=== PATIENT | male | born 1930 | race Caucasian/White ===

== ENCOUNTER 2017-07-01 17:31 | Emergency (ER) | payer MEDICARE, MEDICAID ==
[~2017-07-01] VITALS: Ht 177.8 cm; Wt 67.6 kg
--- NOTE | 2017-07-01 18:01 | Emergency Room Report ---
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 N Clinical Suspician of Infection? N Mental Status: 1 - Regular (Normal Baseline) Sepsis Risk:Low Sepsis Risk Have you (or family members/close friends) recently traveled outside the [place]? N If Yes, where/when: Have you had exposure to infectious disease within the past month? N TB? Other? Specify: 87 years old white male who is has a chief complaint SHORTNESS of breath and wheezing since last night. He has coughed is productive of white material. He denies having fever or chills chest pain or abdominal pain. He is belching a lot BY His . Source patient, RN notes reviewed, family () Exam Limitations no limitations ALLERGIES Coded Allergies: No Known Allergies (01/07/17) History Medical History General CAD? No Angina: No OH: No Hypertension? No Hyperlipidemia? No CHF? No DVT? No PE? No COPD? Yes Asthma? Yes Anemia? No GERD? No Gastric ulcers? No GI Bleed? No Hernia? No Thyroid Problems? No Hypothyroidism? No CVA? No Seizures? No Diabetes? No Renal Insuffiency? No End Stage Renal Disease? No UTI? No Stones? No BPH? No GB Disease: No Nephritic Syndrome? No Asplenia? No Hepatitis? No Sickle Cell Disease? No Arthritis? No Migraines? No Cataracts? Yes Glaucoma? No MRSA? No HIV? No TB? No Anxiety? No Depression? No Cancer? No More? No Immunization Hx DT/Tetanus Unknown Surgical Hx Previous Surgery?Y CATARACTS APPENDECTOMY Social History Smoking Hx Smoker: Former Smoker Tobacco: Yes Type Cigarettes Alcohol Alcohol: No Review of Systems All Other Systems Reviewed and Negative Constitutional no symptoms reported Eyes no symptoms reported ENT no symptoms reported. Respiratory see HPI Cardiovascular no symptoms reported Gastrointestinal no symptoms reported Genitourinary no symptoms reported. Musculoskeletal no symptoms reported Skin no symptoms reported Psychiatric/Neurological no symptoms reported Physical Exam Vital Signs Vital Signs Date Time Temp Pulse Resp B/P Pulse O2 O2 Flow FiO2 Ox Delivery Rate 07/01 1903 98.3 88 22 118/77 93 07/01 1748 98.4 89 22 150/90 94 - WBC >12,000 or <4,000 or 10% bands? 2 or more SIRS Criteria Met? B/P:150/90 MAP:110 Creatinine >2.0? UA output<0.5ml/kg/hr for 2 hrs? Platelet count >100,000? Lactate >2.0mmol/1? INR >1.2 or PTT > than 60 sec? Evidence of Organ Dysfunction? Provider documented clinical suspician of infection? N Sepsis Criteria Count: 1 Sepsis Risk: Low Sepsis Risk General Appearance normal appearance, WD/WN Eye Exam - bilateral eye normal exam, bilateral eye PERRL, bilateral eye EOMI Ear, Nose, Throat hearing grossly normal, normal ENT inspection Neck normal inspection, non-tender, supple, full range of motion Respiratory Status Yes: trachea midline, chest symmetrical, non tender chest. No: respiratory distress. Lung Sounds bilateral: normal breath sounds, lungs clear. Cardiovascular normal exam, regular rate/rhythm, no peripheral edema, no gallop, no JVD, no murmur, no rub, normal peripheral pulses Gastrointestinal normal bowel sounds, normal exam, non tender, soft, no organomegaly Back normal inspection, no CVA tenderness, no vertebral tenderness Neurologic alert, outcomes specialist II-XII nml as tested, normal exam, oriented x 3 Reflexes Reflexes normal Yes Medical Decision Making LABS/Meds/Orders Pt receiving controlled substance in ED? No Results/Orders Laboratory Tests 07/01/171811: Sodium 142, Potassium 3.9, Chloride 102, Carbon Dioxide 32, BUN 14, Creatinine 1.2, Estimated Creat Clear 43 L, Estimated GFR (MDRD) 58, Glucose 101, Calcium 9.3, Creatine Kinase 96, CK-MB (CK-2) Rel Index 0.5, CK and CKMB Interp 0.5, Troponin I < 0.02 07/01/171811: B-Natriuretic Peptide 20, D-Dimer 331, WBC 13.8 H, RBC 4.49 L, Hgb 13.7 L, Hct 41.6 L, MCV 92.7, RDW 13.1, Plt Count 358, MPV 8.7, Gran % 64.7, Gran # 8.9 H, Lymphocytes % 26.8, Monocytes % 4.8, Eosinophils % 2.9, Basophils % 0.8, Lymphocytes # 3.7, Monocytes # 0.7, Eosinophils # 0.4, Basophils # 0.1, PUBS MCHC 33.0, MCH 30.6 Current Medication Orders Sig/Giovanna Start time Last Medication Dose Route Stop Time Status Admin Famotidine 0 .STK-MED ONE 07/01 1925 DC IV Methylprednisolone 0 .STK-MED ONE 07/01 1925 DC Sodium Succinate .ROUTE Albuterol/Ipratropium 0 .STK-MED ONE 07/01 1829 DC INH Albuterol/Ipratropium 3 ML ONCE ONE 07/01 1800 DC 07/01 INH 07/01 1801 183 Famotidine 20 MG ONCE ONE 07/01 1800 DC 07/01 IV 07/01 Methylprednisolone 125 MG ONCE ONE 07/01 1800 DC 07/01 Sodium Succinate IV 07/01 Sodium Chloride 10 ML PRN PRN 07/01 1800 AC IV 07/02 175 Sodium Chloride 8 ML ONCE ONE 07/01 1800 DC IV 07/01 180 Orders Procedure Date/time Status D-DIMER 07/01 1801 Complete BRAIN NATRIURETIC PEPTIDE 07/01 1801 Complete ELECTROCARDIOGRAM REQUEST 07/01 1756 Active RT REQUEST DUONEB 07/01 1756 Active CHEST(2 VIEWS-NOT PORTABLE) 07/01 1756 Active IV SALINE LOCK 07/01 1756 Active CBC WITH AUTO DIFF 07/01 1756 Complete CARDIAC ENZYMES 07/01 1756 Complete BASIC METABOLIC PROFILE 07/01 1756 Complete CM/EKG CM/EKG Comments NSR 83.MINUTES, NO ACUTE. XRAY/CT/US XRAY/CT/US XRAY chest XR interpretation by reviewed by me Xray Results no infiltrates Departure Departure Time of Disposition 1932 Disposition DC Home or Self Care(routine) Clinical Impression Primary Impression: COPD exacerbation Condition STABLE Referrals Mona Brody (PCP/Family) Additional Instructions The patient had normal chest x-ray his d-dimer was negative. He felt better after the DuoNeb treatment. He was advised for Medrol Dosepak antibiotics and follow-up with a primary care physician in the morning. He had an uneventful ED stay. Discharge Counseling Counseled pt/family regarding diagnosis, test results, medications/RX, home care, follow up needs Prescriptions Current Visit Scripts Methylprednisolone (Medrol Dose Mukund) 4 MG PO UD #1 MUKUND TAKE DIRECTED ON PACKAGING Famotidine (Pepcid 20MG) 20 MG PO Q12 #20 TAB Ref 1 Levofloxacin (Levaquin) 250 MG PO DAILY #10 TAB ED Critical Care Critical Care No at 1936
[2017-07-01 18:33] LABS: HEMOGLOBIN 13.7 g/dL (14.1-18.0); LYMPH # 3.7 K/mm3 (0.7-4.5); LYMPH % 26.8 % (10-50)
[2017-07-01 18:53] LABS: BUN 14 mg/dL (7-18)
[2017-07-01 18:54] LABS: GFR (ESTIMATED) 58 ML/MIN (>60)
[2017-07-01] MEDS ORDERED: Pepcid20 MG PO (19:35)
[2017-07-01] MEDS ORDERED: MEDROL 4MG. DOSE4 MG PO (19:35)
[2017-07-01] MEDS ORDERED: LEVAQUIN250 M1 PO (19:35)
[2017-07-01 20:02] VITALS: BP 118/77
--- NOTE | 2017-07-02 07:34 | RADIOLOGY REPORT PS360 ---
CHEST(2 VIEWS-NOT PORTABLE) COMPARISON: CT scan the chest 01/07/2017 HISTORY: Shortness of breath TECHNIQUE: PA and lateral chest FINDINGS: Moderate emphysematous changes seen with hyperexpansion lung segundo and flattening and depression of the hemidiaphragms. There is a stable small noncalcified pulmonary nodule right lower lobe near the costophrenic angle. This was seen on the previous CT scan the chest. There is no pneumonic infiltrate. Again noted is a somewhat suspicious mass seen projecting just above the aortic arch on both the PA and lateral projection. This mass has a suspicious appearance on the recent CT scan in December this year. Cardiac size is normal and is no pleural fluid. IMPRESSION: Moderate COPD, somewhat suspicious left upper lobe pulmonary mass, possibly fused PET CT scan may be helpful for additional evaluation. CT guided fine needle biopsy is a consideration as well though certainly patient is at risk for pneumothorax with the underlying emphysematous changes
--- OUTSIDE RECORDS SUMMARY | 2017-07-08 21:39 | External Medical Summary Rpt ---
Author Author [employer] Vilchis, RALEIGHRACIEL [employer] Organization [employer] Address Unknown Phone Unavailable Results Fibrin D-dimer FEU [Mass/volume] in Platelet poor plasma Observa Value Referen Units Interpr Notes Date tion ce etation Range Fibrin 0 - 400 ng/mL Normal The Jul 01 D-dimer D-Dimer 2016 6:12 FEU values PM [Mass/vol are ume] in presented Platelet in units poor of plasma mass(ng/m L) ofD-Dimer units(DDU ).This test has been FDA approved as an aid in the assessmen tand evaluatio n of suspected DIC, and thromboem bolic eventsinc luding PE and DVT. However, it does not have approvalf or cut-off values for the exclusion of these condition s. Natriutietic peptide B [Mass/volume] in Serum or Plasma Observa Value Referen Units Interpr Notes Date tion ce etation Range Natriutie 0 - 100 pg/mL Normal No Jul 01 tic inform2016 6:12 peptide B on in PM source [Mass/vol data ume] in Serum or Plasma CBC W Auto Differential panel in Blood Observa Value Referen Units Interpr Notes Date tion ce etation Range Basophils 0 - 0.2 K/MM3 Normal No Jul 01 inform2016 6:12 [#/volume on in PM ] in source Blood by data Automated count Basophils 0.1 - 2.0 % Normal No Jul 01 informati 2016 6:12 leukocyte on in PM s in source Blood by data Automated count Eosinophi 0.0 - 0.4 K/mm3 Normal No Jul 01 ls informati 2016 6:12 [#/volume on in PM ] in source Blood by data Automated count Eosinophi 0.1 - % Normal No Jul 01 ls/100 12.0 informati 2016 6:12 leukocyte on in PM s in source Blood by data Automated count Granulocy 1.3 - 8.0 K/mm3 High No Jul 01 rosalino informati 2016 6:12 [#/volume on in PM ] in source Blood by data Automated count Granulocy 37.0 - % Normal No Jul 01 rosalino/100 80.0 informati 2017 6:12 leukocyte on in PM s in source Blood by data Automated count Hematocri 42.0 - % Low No Jul 01 t [Volume 52.0 informati 2016 6:12 on in PM Fraction] source of Blood data Hemoglobi 14.1 - g/dL Low No Jul 01 n 18.0 informati 2017 6:12 [Mass/vol on in PM ume] in source Blood data Lymphocyt 0.7 - 4.5 K/mm3 Normal No Jul 01 es informati 2017 6:12 [#/volume on in PM ] in source Unspecifi data ed specimen by Automated count Lymphocyt 10 - 50 % Normal No Jul 01 es informati 2017 6:12 [#/volume on in PM ] in source Unspecifi data ed specimen by Automated count Erythrocy 27 - 31.2 pg Normal No Jul 01 te mean informati 2016 6:12 corpuscul on in PM ar source hemoglobi data n [Entitic mass] Erythrocy 31.8 - g/dl Normal No Jul 01 te mean 35.4 informati 2017 6:12 corpuscul on in PM ar source hemoglobi data n concentra tion [Mass/vol ume] by Automated count Erythrocy 82.2 - fl Normal No Jul 01 te mean 97.8 informati 2017 6:12 corpuscul on in PM ar volume source [Entitic data volume] by Automated count Monocytes 0.1 - 1.0 K/mm3 Normal No Jul 01 informati 2017 6:12 [#/volume on in PM ] in source Blood by data Automated count Monocytes 1.7 - 9.3 % Normal No Jul 01 /100 informati 2017 6:12 leukocyte on in PM s in source Blood by data Automated count Platelet 7.4 - fl Normal No Jul 01 mean 10.4 informati 2017 6:12 volume on in PM [Entitic source volume] data in Blood by Automated count Platelets 142 - 424 K/mm3 Normal No Jul 01 informati 2017 6:12 [#/volume on in PM ] in source Blood data Erythrocy 4.6 - 6.2 M/mm3 Low No Jul 01 rosalino informati 2017 6:12 [#/volume on in PM ] in source Amniotic data fluid Erythrocy 11.5 - % Normal No Jul 01 te 17.5 informati 2017 6:12 distribut on in PM ion width source [Entitic data volume] by Automated count Leukocyte 4.8 - K/MM3 High No Oct 5 s 10.8 informati 2017 6:12 [#/volume on in PM ] in source Blood data
--- OUTSIDE RECORDS SUMMARY | 2017-07-08 21:39 | External Medical Summary Rpt | CCD ---
Author Author , ABIDA SIMMS Address Unknown Phone [email or web address] Purpose Continuity of Care Document - 07-01-2017 through 2016
--- OUTSIDE RECORDS SUMMARY | 2017-07-08 21:39 | External Medical Summary Rpt | CCD ---
Demographics Preferred Language Malian Marital Status Unknown Confucianism Affiliation Unknown Race Unknown Ethnic Group Unknown Author Author , ABIDA SIMMS Address Unknown Phone Immunization No patient found.
--- OUTSIDE RECORDS SUMMARY | 2017-07-08 21:39 | External Medical Summary Rpt | CCD ---
Author Author , ABIDA SIMMS Address Unknown Phone [email or web address] Purpose Continuity of Care Document - 07-01-2017 through 2016
--- OUTSIDE RECORDS SUMMARY | 2017-07-08 21:39 | External Medical Summary Rpt | CCD ---
Author Author [employer] Address Unknown Phone Unavailable Purpose Continuity of Care Document - through 2016
--- OUTSIDE RECORDS SUMMARY | 2017-07-08 21:39 | External Medical Summary Rpt | CCD ---
Demographics Preferred Language Namibian Marital Status Unknown Adventism Affiliation Unknown Race Unknown Ethnic Group Unknown Author Author , ABIDA SIMMS Address Unknown Phone Immunization No patient found.
== END 2017-07-01 20:03 | disposition home or self-care (01) ==
LOC: ER 17:31
PROVIDERS: Emergency Medicine
DX: J44.1 Chronic obstructive pulmonary disease with (acute) exacerbation (principal); Z87.891 Personal history of nicotine dependence